=== PATIENT | female | born 1985 | race Caucasian/White ===

== ENCOUNTER → 2016-05-09 | Outpatient (CLI) | payer BC ==
--- NOTE | 2016-05-09 09:13 | US ---
EXAMINATION TYPE: US gallbladder DATE OF EXAM: 05/09/2016 9:04 AM COMPARISON: CT in PACS CLINICAL HISTORY: R10.0 ABD PAIN. Generalized ABD pain, pt states "stomach issues" EXAM MEASUREMENTS: Liver Length: 17.7 cm Gallbladder Wall: 0.2 cm CBD: 0.4 cm Right Kidney: 11.2 x 5.1 x 6.3 cm Findings: Pancreas: Obscured by bowel gas Liver: Upper limits of normal for size/ Difficult to penetrate Gallbladder: wnl Evidence for sonographic Fletcher's sign: No CBD: wnl Right Kidney: wnl IMPRESSION: 1. Fatty hepatic infiltration.
== END ==
LOC: RADUSWWP 08:51
PROVIDERS: ATTEND Family Medicine
DX: K76.0 Fatty (change of) liver, not elsewhere classified (principal)
CPT/HCPCS: 76705

== ENCOUNTER → 2016-05-22 | Outpatient (CLI) | payer BC ==
--- NOTE | 2016-05-23 08:14 | NM ---
EXAMINATION TYPE: NM hepatobiliary w EF DATE OF EXAM: 05/22/2016 4:46 PM COMPARISON: NONE HISTORY: Fatty liver TECHNIQUE: After the intravenous administration of 5.4 mCi Tc 99m Mebrofenin hepatobiliary scintigrap hy is performed. Immediate images post injection. FINDINGS: There is satisfactory initial accumulation of tracer by the liver. The gallbladder is visualized wit hin 6 minutes. The small bowel activity is noted within 28 minutes. At one hour 8 ounces of oral en sure plus is given to mimic CCK and gallbladder ejection fraction is calculated at 57 %, in the vicente l range. Therefore there is no scintigraphic evidence of cystic or common bile duct obstruction to s uggest acute cholecystitis or gallbladder dyskinesia. IMPRESSION: NORMAL NUCLEAR MEDICINE HEPATOBILIARY SCAN WITH EJECTION FRACTION CALCULATION.
== END | disposition home or self-care (01) ==
LOC: RADNMMAIN 14:37
PROVIDERS: ATTEND Family Medicine
DX: K76.0 Fatty (change of) liver, not elsewhere classified (principal)
CPT/HCPCS: 78226; A9537

== ENCOUNTER 2016-06-13 09:20 | Day surgery (SDC) | payer BC ==
[2016-06-10 15:37] VITALS: BMI 45.1
[~2016-06-13 09:20] MED LIST: LACTATED RINGERS 1,000 ML IV SCH; LIDOCAINE 1% 20 ML VIAL (10MG/ML) FOR IV START INTRADERMA PRN
[2016-06-13 09:41] VITALS: TEMP 97.8
[2016-06-13] MEDS ORDERED: KETAMINE 10 MG/ML 20 ML VIAL ONE (10:29)
[2016-06-13] MEDS ORDERED: PROPOFOL 10 MG/ML 20 ML VIAL IV ONE (10:29)
[2016-06-13] MEDS ORDERED: GLYCOPYRROLATE 0.2 MG/ML 2 ML VIAL ONE (10:29)
[2016-06-13 10:43] VITALS: RESP 18
--- NOTE | 2016-06-13 10:46 | P.OP ---
Date of Procedure: 06/13/16 Preoperative Diagnosis: GERD Postoperative Diagnosis: Antral gastritis Hiatal hernia Esophagitis Procedure(s) Performed: EGD Anesthesia: MAC Surgeon: Marquez Lord Pathology: other (Antrum, esophagus) Condition: stable Disposition: PACU Description of Procedure: The patient's placed on the endoscopy table lateral position. She received IV sedation. The gastroscope some placed oropharynx and passed in the esophagus and stomach. Scope was then placed through the pylorus. The first and second portion of the duodenum appeared normal. Scope was then brought back the antrum and this appeared mildly inflamed. A biopsies was performed. The scope was then retroflexed the meters stomach appeared normal. There was a hiatal hernia seen. The GE junction was at 40 cm. is. The distal esophagus appeared mildly inflamed. A biopsies performed. The scope was then brought back the proximal esophagus this appeared normal. Scope was withdrawn for patient.
[2016-06-13 11:07] VITALS: BP 95/55; PULSE 70
--- NOTE | 2016-08-22 13:03 | P.GSHP ---
History of Present Illness H&P Date: 06/13/16 Chief Complaint: Epigastric dull pain 22-year-old female who presents today for EGD. She's had complaints of some epigastric abdominal pain. Past Medical History Past Medical History: Asthma, GERD/Reflux Additional Past Medical History / Comment(s): MIGRAINES., RASH ON ARMS . History of Any Multi-Drug Resistant Organisms: None Reported Past Surgical History: No Surgical Hx Reported Additional Past Surgical History / Comment(s): TUBES IN EARS. Past Anesthesia/Blood Transfusion Reactions: No Reported Reaction, Motion Sickness Past Psychological History: Anxiety Smoking Status: Current every day smoker Past Alcohol Use History: Occasional Additional Past Alcohol Use History / Comment(s): SMOKES 1/2 PPD. STATES SMOKING APPROX 2 YEARS. Past Drug Use History: None Reported - Past Family History Mother Family Medical History: No Reported History Medications and Allergies Home Medications Medication Instructions Recorded Confirmed Type Acetaminophen Tab [Tylenol] 650 mg PO Q6H PRN 06/10/16 07/28/16 History Albuterol Nebulized [Ventolin 2.5 mg INHALATION RT-TID 07/23/16 07/28/16 History Nebulized] Allergies Allergy/AdvReac Type Severity Reaction Status Date / Time cephalexin monohydrate Allergy Swelling Verified 07/28/16 09:57 [From Keflex] sulfamethoxazole Allergy Rash/Hives Verified 07/28/16 09:57 [From Bactrim] trimethoprim [From Bactrim] Allergy Rash/Hives Verified 07/28/16 09:57 propoxyphene napsylate AdvReac Nausea & Verified 07/28/16 09:57 [From Darvocet-N 100] Vomiting Surgical - Exam Vital Signs Temp Pulse Resp BP Pulse Ox 97.8 F 84 16 118/69 95 06/13/16 09:38 06/13/16 09:38 06/13/16 09:38 06/13/16 09:38 06/13/16 09:38 - General well developed, no distress - Eyes PERRL - Neck no masses - Cardiovascular Rhythm: regular - Abdomen Abdomen: soft, non tender Assessment and Plan Plan: Abdominal pain. We'll perform EGD.
== END 2016-06-13 11:20 | disposition home or self-care (01) ==
LOC: ORWHC2ENDO 09:20
PROVIDERS: ATTEND Surgery
DX: K29.50 Unspecified chronic gastritis without bleeding (principal); K21.0 Gastro-esophageal reflux disease with esophagitis; K44.9 Diaphragmatic hernia without obstruction or gangrene; J45.909 Unspecified asthma, uncomplicated; F41.9 Anxiety disorder, unspecified; F17.200 Nicotine dependence, unspecified, uncomplicated; Z79.899 Other long term (current) drug therapy; Z88.1 Allergy status to other antibiotic agents; Z88.2 Allergy status to sulfonamides
CPT/HCPCS: 81025; 88305; 88342; 43239; J2704

== ENCOUNTER 2016-07-14 09:30 | Inpatient (IN) | payer BC ==
[2016-07-10 09:54] VITALS: BMI 45.4
[2016-07-28] MEDS ORDERED: HEPARIN SODIUM,PORCINE 5,000 UNIT/ML 1 ML VIAL SQ ONE (05:00)
[2016-07-28] MEDS ORDERED: CLINDAMYCIN 900 MG in DEXTROSE 5% IN WATER 50 ML IVPB ONE ×2 (05:00)
[2016-07-28] MEDS ORDERED: GENTAMICIN 320 MG in SODIUM CHLORIDE 0.9% 100 ML IVPB ONE (05:00)
[2016-07-28] MEDS ORDERED: ONDANSETRON 4 MG/2 ML VIAL IVP ONE (05:48)
[2016-07-28] MEDS ORDERED: LIDOCAINE 1% 20 ML VIAL (10MG/ML) FOR IV START INTRADERMA PRN ×2 (05:48)
[2016-07-28] MEDS ORDERED: LACTATED RINGERS 1,000 ML IV SCH (05:48)
[2016-07-28] MEDS ORDERED: DEXAMETHASONE SOD PHOSPHATE 10 MG/ML 1 ML VIAL IV ONE (05:48)
[2016-07-28] MEDS ORDERED: SCOPOLAMINE 1.5MG/72HR PATCH TRANSDERM ONE (05:48)
[2016-07-28] MEDS ORDERED: HYDROmorphone 1 MG/ML 1 ML SYRINGE IVP PRN (05:48)
[2016-07-28 09:56] LABS: Glucose,Whole Blood 95 mg/dL (75-99)
--- NOTE | 2016-07-28 10:34 | P.GSHP ---
History of Present Illness H&P Date: 07/28/16 Chief Complaint: GERD This is a 22-year-old female referred from Dr. Bakari Viera.The patient has had long-standing problems with reflux esophagitis. The patient underwent recent EGD is found have evidence of esophagitis. Patient has been well informed on the procedure of laparoscopic Krystin fundoplication. The patient is aware the risk of the conversion to the open procedure, risk of injury to the stomach, liver and spleen. The patient is also a risk of recurrent GERD and dysphagia symptoms. The patient understands there is a postoperative diet of full liquids for 2 weeks after surgery. - Constitutional Constitutional: Reports as per HPI Past Medical History Past Medical History: Asthma, GERD/Reflux, Skin Disorder Additional Past Medical History / Comment(s): MIGRAINES, varicose veins, bronchitis, hiatal hernia, gets rashes on legs and back-cause unknown, dx laryngitis by Dr Haq- finishing tx tomorrow- symptoms resolved History of Any Multi-Drug Resistant Organisms: None Reported Past Surgical History: Ear Surgery Additional Past Surgical History / Comment(s): TUBES IN EARS. Past Anesthesia/Blood Transfusion Reactions: Motion Sickness Past Psychological History: Anxiety Smoking Status: Current every day smoker Past Alcohol Use History: None Reported Additional Past Alcohol Use History / Comment(s): SMOKES 1/2 PPD. STATES SMOKING APPROX 2 YEARS. Past Drug Use History: None Reported - Past Family History Mother Family Medical History: No Reported History Medications and Allergies Home Medications Medication Instructions Recorded Confirmed Type Acetaminophen Tab [Tylenol Tab] 650 mg PO Q6H PRN 06/10/16 07/28/16 History Albuterol Nebulized [Ventolin 2.5 mg INHALATION TID 07/23/16 07/28/16 History Nebulized] Azithromycin [Zithromax Z-pack] 0 mg PO DIRECTED 07/23/16 07/23/16 History methylPREDNISolone [Medrol Dose 4 mg PO DIRECTED 07/23/16 07/28/16 History Pack] Allergies Allergy/AdvReac Type Severity Reaction Status Date / Time cephalexin monohydrate Allergy Swelling Verified 07/28/16 09:57 [From Keflex] sulfamethoxazole Allergy Rash/Hives Verified 07/28/16 09:57 [From Bactrim] trimethoprim [From Bactrim] Allergy Rash/Hives Verified 07/28/16 09:57 propoxyphene napsylate AdvReac Nausea & Verified 07/28/16 09:57 [From Darvocet-N 100] Vomiting Surgical - Exam Vital Signs Temp Pulse Resp BP Pulse Ox 98.3 F 83 16 137/78 98 07/28/16 09:49 07/28/16 09:49 07/28/16 09:49 07/28/16 09:49 07/28/16 09:49 - General well developed, no distress - Eyes PERRL - ENT normal pinna - Neck no masses - Respiratory normal expansion - Abdomen Abdomen: soft, non tender Assessment and Plan Plan: GERD. We'll perform laparoscopic Krystin fundoplication.
[2016-07-28] MEDS ORDERED: MIDAZOLAM 2 MG/2 ML VIAL IV ONE (10:48)
[2016-07-28] MEDS ORDERED: SUCCINYLCHOLINE CHLORIDE 100 MG/5 ML SYR IV ONE (11:03)
[2016-07-28] MEDS ORDERED: LIDOCAINE 1% INJ 10MG/ML (20 ML MDV) ONE (11:03)
[2016-07-28] MEDS ORDERED: ROCURONIUM BROMIDE 10 MG/ML 10 ML VIAL IV ONE (11:03)
[2016-07-28] MEDS ORDERED: NEOSTIGMINE 1 MG/ML 10 ML VIAL ONE (11:03)
[2016-07-28] MEDS ORDERED: GLYCOPYRROLATE 0.2 MG/ML 2 ML VIAL ONE (11:03)
[2016-07-28] MEDS ORDERED: fentaNYL (PF) 50 MCG/ML 2 ML AMP ONE (11:03)
[2016-07-28] MEDS ORDERED: MIDAZOLAM 2 MG/2 ML VIAL ONE (11:03)
[2016-07-28] MEDS ORDERED: PROPOFOL 10 MG/ML 20 ML VIAL IV ONE (11:03)
[2016-07-28] MEDS ORDERED: BUPIVACAIN-EPI 0.25%-1:200,000 30 ML VIAL SQ ONE (11:26)
--- NOTE | 2016-07-28 12:06 | P.OP ---
Date of Procedure: 07/28/16 Preoperative Diagnosis: GERD Postoperative Diagnosis: GERD Procedure(s) Performed: Laparoscopic Krystin fundoplication Implants: Anesthesia: SEEMA Surgeon: Marquez Lord Estimated Blood Loss (ml): 5 Pathology: none sent Condition: stable Disposition: PACU Indications for Procedure: Operative Findings: Description of Procedure: The patient was placed on the operating table in the supine position. The patient received general anesthesia. And was placed in dorsal lithotomy position. The patient was prepped and draped in the usual sterile fashion. The skin incision sites were anesthetized with 1% local Xylocaine. The skin was incised in the left periumbilical area and then using a blade less 5 mm trocar under direct visualization panel cavity was entered. After adequate insufflation the laparoscope was then placed into the peritoneal cavity. Next a 5 mm trochars placed in the right epigastric position. Another 5 millimeter trocar the right lateral position. Another 5 millimeter trocar in the left lateral position a 5 mm trocar is placed in the left epigastric position. And then the initial 5 mm trocar was exchanged for a 10 mm trocar. The left lateral lobe liver was retracted. The hernia was seen. The crural defect was then dissected using the Harmonic scissors device. A 360 crural dissection was performed the esophagus stomach was reduced back into the peritoneal Cavity. The crural defect was then closed using 2-0 Ethibond suture. Next the fundus of the stomach was mobilized using the [place] scissors device. and then a 58-[place] bougie dilator was placed oropharynx passed into the esophagus and stomach the fundal plication wrap was then performed by grasping the fundus posteriorly and bringing it around the esophagus and stomach fundoplication was then performed using 2-0 Ethibond suture. Care was taken that the fundal location rested over top of the intra-abdominal esophagus. There was no injury seen to the stomach or esophagus. The dilator was then withdrawn. The abdomen was irrigated there is no bleeding seen. The trochars were then withdrawn and then skin incision sites were closed using 3-0 Monocryl suture Steri-Strips are applied. Patient thought procedure well and sent to recovery room in stable condition.
[2016-07-28] MEDS ORDERED: ONDANSETRON 4 MG/2 ML VIAL IVP PRN (12:07)
[2016-07-28] MEDS ORDERED: KETOROLAC 30 MG/ML 1 ML VIAL IVP ONE (12:30)
[2016-07-28 12:32] VITALS: RESP 16
[2016-07-28] MEDS: HYDROmorphone 1 MG/ML 1 ML SYRINGE IVP PRN ×4 (12:39→21:36)
[2016-07-28] MEDS: LACTATED RINGERS 1,000 ML IV SCH ×2 (14:54→20:59)
[2016-07-28] MEDS: D5-0.45% NACL WITH KCL 20MEQ/L 1,000 ML IV SCH ×2 (14:56→20:59)
[2016-07-29 01:10] VITALS: TEMP 97.7
[2016-07-29] MEDS: D5-0.45% NACL WITH KCL 20MEQ/L 1,000 ML IV SCH (03:31)
[2016-07-29] MEDS: HYDROmorphone 1 MG/ML 1 ML SYRINGE IVP PRN ×2 (04:57→10:34)
[2016-07-29 07:07] VITALS: BP 122/63; PULSE 73
[2016-07-29] MEDS ORDERED: ENOXAPARIN 40 MG/0.4 ML SYRINGE SQ SCH (09:00)
--- NOTE | 2016-07-29 11:25 | P.DS ---
Providers Date of admission: 07/28/16 09:07 Expected date of discharge: 07/29/16 Attending physician: Marquez Lord Primary care physician: Bakari Haq [facility] Course: Patient is a 30-year-old female, patient of Dr. Bakari Haq in the outpatient setting, with medical history significant for reflux esophagitis not managed with conservative treatment. Patient presented to the hospital for elective laparoscopic Krystin fundoplication. Patient tolerated procedure well. Postoperative swallow study without evidence of leak or obstruction. Patient had no complaints of dysphagia. Patient had an uneventful postoperative recovery and was deemed stable for discharge to home with close follow-up in the outpatient setting. Discharge diagnoses: GERD status post laparoscopic Krystin fundoplication. The above impression and plan have been discussed and directed by Dr. Lord. Jes HUNTER acting as scribe for Dr. Lord. Pertinent Studies: Pharynx larynx with fluoroscopy Procedures: Laparoscopic Krystin fundoplication Patient Condition at Discharge: Good Plan - Discharge Summary New Discharge Prescriptions: Docusate [Colace] 100 mg PO BID #20 capsule HYDROcodone/APAP 7.5-325MG [[place] 7.5-325] 1 tab PO Q6HR PRN #28 tab PRN Reason: Pain Discharge Medication List Acetaminophen Tab [Tylenol] 650 mg PO Q6H PRN 06/10/16 [History] Albuterol Nebulized [Ventolin Nebulized] 2.5 mg INHALATION RT-TID 07/23/16 [ History] Docusate [Colace] 100 mg PO BID #20 capsule 07/29/16 [Rx] HYDROcodone/APAP 7.5-325MG [[place] 7.5-325] 1 tab PO Q6HR PRN #28 tab 07/29/16 [ Rx] Follow up Appointment(s)/Referral(s): Bakari Haq DO [Primary Care Provider] - 1 Week Marquez Lord MD [STAFF PHYSICIAN] - 2 Weeks Patient Instructions/Handouts: *Surgery [facility] - ([facility]) Lap Krystin Fundiplication Post-Op Instructions Activity/Diet/Wound Care/Special Instructions: No heavy lifting, pushing, or pulling items greater than 10 pounds. Full liquid diet for 2 weeks. No caffeinated beverages or straws. Shower daily, no soaking in bath tubs, pools, or hot tubs. No driving while taking pain medication. Notify surgeon with any signs or symptoms of infection, increased pain, or not tolerating diet. Discharge Disposition: HOME SELF-CARE
--- NOTE | 2016-07-29 12:10 | FL ---
EXAMINATION TYPE: FL esophagus cervic/pharynx DATE OF EXAM: 07/28/2016 4:59 PM HISTORY: Post Luis COMPARISON: NONE TECHNIQUE: Single contrast technique utilized to evaluate distal esophagus. FINDINGS: Distal esophagus opens to normal caliber. There is flow contrast through the postsurgical site with m ild hesitancy. No extravasation of contrast 7. No free air is evident. IMPRESSION: 1. No extravasation of contrast. 2. No significant obstruction post surgery
== END 2016-07-29 12:01 | disposition home or self-care (01) | DRG 328 ==
LOC: 2ORWHC 07-28 09:07 → 3SUR 07-28 12:10
PROVIDERS: ADMIT Surgery; ATTEND Surgery
PROC: 0DV44ZZ Restriction of Esophagogastric Junction, Percutaneous Endoscopic Approach (ICD-10-PCS; principal; 2016-07-28 11:25)
PROC: 0BQS4ZZ (ICD-10-PCS; principal; 2016-07-28 11:25)
PROC: 0BQR4ZZ (ICD-10-PCS; principal; 2016-07-28 11:25)
DX: K21.9 Gastro-esophageal reflux disease without esophagitis (principal); F17.200 Nicotine dependence, unspecified, uncomplicated; J45.909 Unspecified asthma, uncomplicated; Z79.899 Other long term (current) drug therapy; Z88.1 Allergy status to other antibiotic agents; Z88.2 Allergy status to sulfonamides; K44.9 Diaphragmatic hernia without obstruction or gangrene
CPT/HCPCS: 36415; 74210; 81025; 85025

== ENCOUNTER → 2016-07-23 | Outpatient (CLI) | payer BC ==
[2016-07-23 13:59] LABS: Basophils # (A) 0.1 k/uL (0-0.2); Basophils % (A) 0 %; CH 29.3; CHCM 33.2; Eosinophils # (A) 0.1 k/uL (0-0.7); Eosinophils % (A) 1 %; HCT 43.1 % (34.0-46.0); HDW 2.15; HGB 14.3 gm/dL (11.4-16.0); Luc # (Auto) 0.19; Luc % (Auto) 2; Lymphocytes # (A) 3.2 k/uL (1.0-4.8); Lymphocytes % (A) 26 %; MCH 29.5 pg (25.0-35.0); MCHC 33.3 g/dL (31.0-37.0); MCV 88.7 fL (80.0-100.0); Monocytes # (A) 0.4 k/uL (0-1.0); Monocytes % (A) 4 %; Neutrophils # (A) 8.1 k/uL (1.3-7.7); Neutrophils % (A) 67 %; RBC 4.86 m/uL (3.80-5.40); WBC 12.1 k/uL (3.8-10.6); WBC (Perox) 11.65
== END | disposition home or self-care (01) ==
LOC: LABPAT 13:37
PROVIDERS: ATTEND Surgery
DX: Z01.812 Encounter for preprocedural laboratory examination (principal)
CPT/HCPCS: 36415; 85025

== ENCOUNTER 2016-11-16 23:24 | Emergency (ER) | payer BC, OTHER ==
[2016-11-16 23:31] VITALS: RESP 18
--- NOTE | 2016-11-16 23:41 | ED ---
General Adult HPI - General Chief complaint: Neck Pain/Injury Stated complaint: Swollen Neck Time Seen by Provider: 11/16/16 23:32 Source: patient, RN notes reviewed Mode of arrival: ambulatory Limitations: no limitations - History of Present Illness Initial comments: This a 30-year-old female presents emergency Department chief complaint of swelling along the right side of her mandible. Patient states this started 2 days ago. He states it is. Painful and swollen. She states never had any like this in the past. She states that she's had multiple dental infections including strep states that she has no pain directly throat at this time. Patient denies fever, chills. She does admit to some fatigue, and run down. She denies any sick contacts chest pain, shortness breath, nausea, vomiting diarrhea constipation. Patient states she has not taken Tylenol Motrin for symptoms at this time. Denies any dental pain - Related Data Previous Rx's Medication Instructions Recorded Amoxicillin/Potassium Clav 1 tab PO Q12HR #20 tab 11/17/16 [Augmentin 875-125 Tablet] Ibuprofen [Motrin] 600 mg PO Q8HR PRN #30 tab 11/17/16 Allergies Allergy/AdvReac Type Severity Reaction Status Date / Time bee venom protein (honey bee) Allergy Unknown Verified 11/16/16 23:44 cephalexin monohydrate Allergy Swelling Verified 11/16/16 23:44 [From Keflex] sulfamethoxazole Allergy Rash/Hives Verified 11/16/16 23:44 [From Bactrim] trimethoprim [From Bactrim] Allergy Rash/Hives Verified 11/16/16 23:44 propoxyphene napsylate AdvReac Nausea & Verified 11/16/16 23:44 [From Darvocet-N 100] Vomiting Review of Systems ROS Statement: Those systems with pertinent positive or pertinent negative responses have been documented in the HPI. ROS Other: All systems not noted in ROS Statement are negative. Past Medical History Past Medical History: Asthma, GERD/Reflux, Skin Disorder Additional Past Medical History / Comment(s): MIGRAINES, varicose veins, bronchitis, hiatal hernia, gets rashes on legs and back-cause unknown, dx laryngitis by Dr Haq- finishing tx tomorrow- symptoms resolved History of Any Multi-Drug Resistant Organisms: None Reported Past Surgical History: Ear Surgery Additional Past Surgical History / Comment(s): TUBES IN EARS. Past Anesthesia/Blood Transfusion Reactions: Motion Sickness Past Psychological History: Anxiety Smoking Status: Current every day smoker Past Alcohol Use History: None Reported Past Drug Use History: None Reported - Past Family History Mother Family Medical History: No Reported History General Exam Limitations: no limitations General appearance: alert, in no apparent distress Head exam: Present: atraumatic, normocephalic, normal inspection Eye exam: Present: normal appearance, PERRL, EOMI. Absent: scleral icterus, conjunctival injection, periorbital swelling ENT exam: Present: mucous membranes moist, TM's normal bilaterally, normal external ear exam, other (There is tenderness along the right submandibular region). Absent: normal oropharynx (Left tonsils noted with no exudates or erythema) Neck exam: Present: normal inspection, full ROM, lymphadenopathy (Right submandibular region with mild tenderness). Absent: tenderness, meningismus, thyromegaly Respiratory exam: Present: normal lung sounds bilaterally. Absent: respiratory distress, wheezes, rales, rhonchi, stridor Cardiovascular Exam: Present: regular rate, normal rhythm, normal heart sounds. Absent: systolic murmur, diastolic murmur, rubs, gallop, clicks Neurological exam: Present: alert, oriented X3, CN II-XII intact, reflexes normal. Absent: motor sensory deficit Skin exam: Present: warm, dry, intact, normal color. Absent: rash Course Vital Signs 11/16/16 23:28 Temperature 98.2 F Pulse Rate 84 Respiratory 18 Rate Blood Pressure 129/88 O2 Sat by Pulse 97 Oximetry Medical Decision Making - Medical Decision Making 31-year-old female presents emergency department for swelling in the right submandibular region. Patient's labwork is unremarkable negative strep and negative heterophile. This may be a large lymph node versus salinitis. Patient will be started on Augmentin and follow primary care physician. Return parameters were discussed. - Lab Data Result diagrams: 11/16/16 23:53 11/16/16 23:53 Lab Results 11/16/16 11/16/16 11/16/16 Range/Units 23:53 23:53 23:53 WBC 10.2 (3.8-10.6) k/uL RBC 4.76 (3.80-5.40) m/uL Hgb 14.5 (11.4-16.0) gm/dL Hct 43.1 (34.0-46.0) % MCV 90.7 (80.0-100.0) fL MCH 30.4 (25.0-35.0) pg MCHC 33.6 (31.0-37.0) g/dL RDW 13.6 (11.5-15.5) % Plt Count 270 (150-450) k/uL Neutrophils % 50 % Lymphocytes % 41 % Monocytes % 5 % Eosinophils % 3 % Basophils % 1 % Neutrophils # 5.1 (1.3-7.7) k/uL Lymphocytes # 4.2 (1.0-4.8) k/uL Monocytes # 0.5 (0-1.0) k/uL Eosinophils # 0.3 (0-0.7) k/uL Basophils # 0.1 (0-0.2) k/uL Sodium 139 (137-145) mmol/L Potassium 4.4 (3.5-5.1) mmol/L Chloride 106 (98-107) mmol/L Carbon Dioxide 25 (22-30) mmol/L Anion Gap 8 mmol/L BUN 12 (7-17) mg/dL Creatinine 0.80 (0.52-1.04) mg/dL Est GFR (MDRD) Af Amer >60 (>60 ml/min/1.73 sqM) Est GFR (MDRD) Non-Af >60 (>60 ml/min/1.73 sqM) Glucose 85 (74-99) mg/dL Calcium 8.8 (8.4-10.2) mg/dL Amylase 35 (30-110) U/L Heterophile Antibody Negative (Negative) Group A Strep Rapid (Negative) 11/16/16 Range/Units 23:54 WBC (3.8-10.6) k/uL RBC (3.80-5.40) m/uL Hgb (11.4-16.0) gm/dL Hct (34.0-46.0) % MCV (80.0-100.0) fL MCH (25.0-35.0) pg MCHC (31.0-37.0) g/dL RDW (11.5-15.5) % Plt Count (150-450) k/uL Neutrophils % % Lymphocytes % % Monocytes % % Eosinophils % % Basophils % % Neutrophils # (1.3-7.7) k/uL Lymphocytes # (1.0-4.8) k/uL Monocytes # (0-1.0) k/uL Eosinophils # (0-0.7) k/uL Basophils # (0-0.2) k/uL Sodium (137-145) mmol/L Potassium (3.5-5.1) mmol/L Chloride (98-107) mmol/L Carbon Dioxide (22-30) mmol/L Anion Gap mmol/L BUN (7-17) mg/dL Creatinine (0.52-1.04) mg/dL Est GFR (MDRD) Af Amer (>60 ml/min/1.73 sqM) Est GFR (MDRD) Non-Af (>60 ml/min/1.73 sqM) Glucose (74-99) mg/dL Calcium (8.4-10.2) mg/dL Amylase (30-110) U/L Heterophile Antibody (Negative) Group A Strep Rapid Negative (Negative) Disposition Clinical Impression: Sialadenitis, Lymphadenopathy Disposition: HOME SELF-CARE Condition: Stable Instructions: Lymphadenopathy (ED) Additional Instructions: Please return to the Emergency Department if symptoms worsen or any other concerns. Prescriptions: Amoxicillin/Potassium Clav [Augmentin 875-125 Tablet] 1 tab PO Q12HR #20 tab Ibuprofen [Motrin] 600 mg PO Q8HR PRN #30 tab PRN Reason: Pain Referrals: Bakari Haq DO [Primary Care Provider] - 1-2 days Time of Disposition: 00:40
[2016-11-17 00:15] LABS: Basophils # (A) 0.1 k/uL (0-0.2); Basophils % (A) 1 %; CH 30.7; Eosinophils # (A) 0.3 k/uL (0-0.7); Eosinophils % (A) 3 %; HCT 43.1 % (34.0-46.0); HDW 2.12; HGB 14.5 gm/dL (11.4-16.0); Luc # (Auto) 0.14; Luc % (Auto) 1; Lymphocytes # (A) 4.2 k/uL (1.0-4.8); Lymphocytes % (A) 41 %; MCH 30.4 pg (25.0-35.0); MCHC 33.6 g/dL (31.0-37.0); MCV 90.7 fL (80.0-100.0); Mean Platelet Volume 9.5; Monocytes # (A) 0.5 k/uL (0-1.0); Monocytes % (A) 5 %; Neutrophils # (A) 5.1 k/uL (1.3-7.7); Neutrophils % (A) 50 %; RBC 4.76 m/uL (3.80-5.40); RDW 13.6 % (11.5-15.5); WBC 10.2 k/uL (3.8-10.6); WBC (Perox) 9.75
[2016-11-17 00:26] LABS: Amylase 35 U/L (30-110); Anion Gap 8 mmol/L; Blood Urea Nitrogen 12 mg/dL (7-17); Calcium 8.8 mg/dL (8.4-10.2); Carbon Dioxide 25 mmol/L (22-30); Chloride 106 mmol/L (98-107); Glucose 85 mg/dL (74-99); Non-African American GFR(MDRD) >60 (>60 ml/min/1.73 sqM); Potassium 4.4 mmol/L (3.5-5.1); Sodium 139 mmol/L (137-145)
[2016-11-17] MEDS ORDERED: AMOXIC-POT CLAV 875-125MG 1 EACH TAB PO STA (00:40)
[2016-11-17 01:06] VITALS: BP 137/63; PULSE 71; TEMP 97.6
== END 2016-11-17 01:07 | disposition home or self-care (01) ==
LOC: EC 23:24
DX: K11.20 Sialoadenitis, unspecified (principal); R59.0 Localized enlarged lymph nodes; R53.83 Other fatigue; F17.200 Nicotine dependence, unspecified, uncomplicated; Z88.1 Allergy status to other antibiotic agents; Z88.5 Allergy status to narcotic agent; Z91.030 Bee allergy status
CPT/HCPCS: 36415; 80048; 82150; 85025; 86308; 87081; 87430; 99283

== ENCOUNTER 2018-03-10 06:01 | Emergency (ER) | payer OTHER ==
[2018-03-10 06:07] VITALS: PULSE 99
--- NOTE | 2018-03-10 07:58 | ED ---
General Adult HPI - General Chief complaint: Abdominal Pain Stated complaint: abd pain Source: patient Mode of arrival: ambulatory Limitations: no limitations - Related Data Home Medications Medication Instructions Recorded Confirmed Ibuprofen [Motrin Ib] 800 mg PO Q6H PRN 03/10/18 03/10/18 Allergies Allergy/AdvReac Type Severity Reaction Status Date / Time bee venom protein (honey bee) Allergy Unknown Verified 03/10/18 07:13 cephalexin monohydrate Allergy Swelling Verified 03/10/18 07:13 [From Keflex] sulfamethoxazole Allergy Rash/Hives Verified 03/10/18 07:13 [From Bactrim] trimethoprim [From Bactrim] Allergy Rash/Hives Verified 03/10/18 07:13 propoxyphene napsylate AdvReac Nausea & Verified 03/10/18 07:13 [From Darvocet-N 100] Vomiting Review of Systems ROS Statement: Those systems with pertinent positive or pertinent negative responses have been documented in the HPI. ROS Other: All systems not noted in ROS Statement are negative. Past Medical History Past Medical History: Asthma, GERD/Reflux, Skin Disorder Additional Past Medical History / Comment(s): MIGRAINES, varicose veins, bronchitis, gets rashes on legs and back-cause unknown, dx laryngitis by Dr Haq- finishing tx tomorrow- symptoms resolved History of Any Multi-Drug Resistant Organisms: None Reported Past Surgical History: Ear Surgery, Hernia Repair Additional Past Surgical History / Comment(s): TUBES IN EARS. Past Anesthesia/Blood Transfusion Reactions: Motion Sickness Past Psychological History: Anxiety Smoking Status: Current every day smoker Past Alcohol Use History: None Reported Past Drug Use History: None Reported - Past Family History Mother Family Medical History: No Reported History General Exam Limitations: no limitations Course Vital Signs 03/10/18 06:01 Temperature 97.7 F Pulse Rate 99 Respiratory 18 Rate Blood Pressure 126/85 O2 Sat by Pulse 99 Oximetry Medical Decision Making - Medical Decision Making Dictation was produced using [employer] dictation software. please excuse any grammatical, word or spelling errors. Chief Complaint: 32-year-old female presents with chief complaint of right lower quadrant abdominal pain. History of Present Illness: Patient is a 32-year-old female past medical history of bypass surgery presents with right lower quadrant abdominal pain. Patient states that the pain is a lot worse today than usual. Patient has approximately one half years of the symptoms. Patient denies the possibility of being . Denies any constitutional symptoms. Patient does report still having her appendix. She has history of bypass surgery by Dr. Lord several months ago. No diarrhea. Patient is nauseous however no vomiting. The ROS documented in this emergency department record has been reviewed and confirmed by me. Those systems with pertinent positive or negative responses have been documented in the HPI. All other systems are other negative and/or noncontributory. PHYSICAL EXAM: General Impression: Alert and oriented x3, not in acute distress HEENT: Normocephalic atraumatic, extra-ocular movements intact, pupils equal and reactive to light bilaterally, mucous membranes moist. Cardiovascular: Heart regular rate and rhythm, S1&S2 audible, no murmurs, rubs or gallops Chest: Lungs clear to auscultation bilaterally, no rhonchi, no wheeze, no rales Abdomen: Tenderness to palpation of the right lower quadrant, referred tenderness to the right with palpation to the left Musculoskeletal: Pulses present and equal in all extremities, no peripheral edema Motor: Power 5/5 bilaterally, no focal deficits noted Neurological: CN II-XII grossly intact, no focal motor or sensory deficits noted Skin: Intact with no visualized rashes Psych: Normal affect and mood ED course: 32 yo Female presents with chief complaint of right lower quadrant abdominal pain. Clinical presentation suspicious for appendicitis. Signs upon arrival are within acceptable limits.Laboratory evaluation obtained. CBC, metabolic panel, urinalysis is unremarkable. Computed tomography scan of the abdomen and pelvis shows no acute processes. There is however mild amount of physiologic fluid likely secondary from a recently ruptured cyst. Patient be discharged. No clinical suspicion of surgical abdomen. Told to follow-up care physician upon discharge. Instructed to return if there is any worsening symptoms. - Lab Data Result diagrams: 03/10/18 06:59 03/10/18 06:59 Lab Results 03/10/18 03/10/18 03/10/18 Range/Units 06:59 06:59 08:36 WBC 8.4 (3.8-10.6) k/uL RBC 4.68 (3.80-5.40) m/uL Hgb 13.6 (11.4-16.0) gm/dL Hct 42.5 (34.0-46.0) % MCV 90.8 (80.0-100.0) fL MCH 29.1 (25.0-35.0) pg MCHC 32.0 (31.0-37.0) g/dL RDW 12.3 (11.5-15.5) % Plt Count 271 (150-450) k/uL Neutrophils % 52 % Lymphocytes % 40 % Monocytes % 5 % Eosinophils % 2 % Basophils % 1 % Neutrophils # 4.3 (1.3-7.7) k/uL Lymphocytes # 3.3 (1.0-4.8) k/uL Monocytes # 0.4 (0-1.0) k/uL Eosinophils # 0.2 (0-0.7) k/uL Basophils # 0.1 (0-0.2) k/uL Sodium 141 (137-145) mmol/L Potassium 4.4 (3.5-5.1) mmol/L Chloride 107 (98-107) mmol/L Carbon Dioxide 28 (22-30) mmol/L Anion Gap 6 mmol/L BUN 12 (7-17) mg/dL Creatinine 0.85 (0.52-1.04) mg/dL Est GFR (CKD-EPI)AfAm >90 (>60 ml/min/1.73 sqM) Est GFR (CKD-EPI)NonAf >90 (>60 ml/min/1.73 sqM) Glucose 86 (74-99) mg/dL Calcium 8.9 (8.4-10.2) mg/dL Urine Color Yellow Urine Appearance Cloudy H (Clear) Urine pH 6.0 (5.0-8.0) Ur Specific [place] >1.050 H (1.001-1.035) Urine Protein Trace H (Negative) Urine Glucose (UA) Negative (Negative) Urine Ketones Negative (Negative) Urine Blood Trace H (Negative) Urine Nitrite Negative (Negative) Urine Bilirubin Negative (Negative) Urine Urobilinogen <2.0 (<2.0) mg/dL Ur Leukocyte Esterase Small H (Negative) Urine RBC 6 H (0-5) /hpf Urine WBC 6 H (0-5) /hpf Ur Squamous Epith Cells 13 H (0-4) /hpf Urine Bacteria Occasional H (None) /hpf Urine Mucus Moderate H (None) /hpf Urine HCG, Qual (Not Detectd) 03/10/18 Range/Units 08:36 WBC (3.8-10.6) k/uL RBC (3.80-5.40) m/uL Hgb (11.4-16.0) gm/dL Hct (34.0-46.0) % MCV (80.0-100.0) fL MCH (25.0-35.0) pg MCHC (31.0-37.0) g/dL RDW (11.5-15.5) % Plt Count (150-450) k/uL Neutrophils % % Lymphocytes % % Monocytes % % Eosinophils % % Basophils % % Neutrophils # (1.3-7.7) k/uL Lymphocytes # (1.0-4.8) k/uL Monocytes # (0-1.0) k/uL Eosinophils # (0-0.7) k/uL Basophils # (0-0.2) k/uL Sodium (137-145) mmol/L Potassium (3.5-5.1) mmol/L Chloride (98-107) mmol/L Carbon Dioxide (22-30) mmol/L Anion Gap mmol/L BUN (7-17) mg/dL Creatinine (0.52-1.04) mg/dL Est GFR (CKD-EPI)AfAm (>60 ml/min/1.73 sqM) Est GFR (CKD-EPI)NonAf (>60 ml/min/1.73 sqM) Glucose (74-99) mg/dL Calcium (8.4-10.2) mg/dL Urine Color Urine Appearance (Clear) Urine pH (5.0-8.0) Ur Specific [place] (1.001-1.035) Urine Protein (Negative) Urine Glucose (UA) (Negative) Urine Ketones (Negative) Urine Blood (Negative) Urine Nitrite (Negative) Urine Bilirubin (Negative) Urine Urobilinogen (<2.0) mg/dL Ur Leukocyte Esterase (Negative) Urine RBC (0-5) /hpf Urine WBC (0-5) /hpf Ur Squamous Epith Cells (0-4) /hpf Urine Bacteria (None) /hpf Urine Mucus (None) /hpf Urine HCG, Qual Not Detected (Not Detectd) Disposition Clinical Impression: Abdominal pain Disposition: HOME SELF-CARE Condition: Good Instructions: Ruptured Ovarian Cyst (ED) Is patient prescribed a controlled substance at d/c from ED?: No Referrals: Bakari Haq DO [Primary Care Provider] - 1-2 days Time of Disposition: 09:34
[2018-03-10 08:31] LABS: Basophils # (A) 0.1 k/uL (0-0.2); Basophils % (A) 1 %; Eosinophils # (A) 0.2 k/uL (0-0.7); Eosinophils % (A) 2 %; HCT 42.5 % (34.0-46.0); HGB 13.6 gm/dL (11.4-16.0); Lymphocytes # (A) 3.3 k/uL (1.0-4.8); Lymphocytes % (A) 40 %; MCH 29.1 pg (25.0-35.0); MCV 90.8 fL (80.0-100.0); Mean Platelet Volume 8.2; Monocytes # (A) 0.4 k/uL (0-1.0); Monocytes % (A) 5 %; Neutrophils # (A) 4.3 k/uL (1.3-7.7); Neutrophils % (A) 52 %; Platelet Count 271 k/uL (150-450); RBC 4.68 m/uL (3.80-5.40); RDW 12.3 % (11.5-15.5); WBC 8.4 k/uL (3.8-10.6)
[2018-03-10 08:36] LABS: Anion Gap 6 mmol/L; Blood Urea Nitrogen 12 mg/dL (7-17); Calcium 8.9 mg/dL (8.4-10.2); Carbon Dioxide 28 mmol/L (22-30); Chloride 107 mmol/L (98-107); Glucose 86 mg/dL (74-99); Potassium 4.4 mmol/L (3.5-5.1); Sodium 141 mmol/L (137-145)
[2018-03-10 08:53] LABS: Appearance,Urine Cloudy (Clear); Bacteria,Urine Occasional /hpf; Bilirubin,Urine Negative (Negative); Blood,Urine Trace (Negative); Color,Urine Yellow; Glucose,Urine (UA) Negative (Negative); Ketones,Urine Negative (Negative); Leukocyte Esterase,Urine Small (Negative); Mucus,Urine Moderate /hpf; Nitrite,Urine Negative (Negative); Protein,Urine Trace (Negative); RBC,Urine 6 /hpf (0-5); Squamous Epithelial Cell,Urine 13 /hpf (0-4); Urobilinogen,Urine <2.0 mg/dL (<2.0); WBC,Urine 6 /hpf (0-5)
[2018-03-10 08:56] LABS: Specific Gravity,Urine >1.050 (1.001-1.035)
--- NOTE | 2018-03-10 09:12 | CT ---
EXAMINATION TYPE: CT abdomen pelvis w con DATE OF EXAM: 03/10/2018 HISTORY: Mid abdominal, umbilical, and right lower quadrant pain. CT DLP: 1786.8mGycm Automated Exposure Control for Dose Reduction was Utilized. CONTRAST: CT scan of the abdomen and pelvis is performed with IV Contrast, patient injected with 100 mL of Isov ue 300. COMPARISON: 08/14/2013 FINDINGS: LUNG BASES: There is bibasilar subsegmental dependent atelectasis. LIVER/GB: Hepatic parenchyma is diffusely hypoattenuated in comparison to that of the spleen, most co mmonly seen in hepatic steatosis. This finding limits evaluation for hepatic masses. No gross evidenc e of hepatic mass is seen. No intrahepatic biliary ductal dilatation. No cholelithiasis PANCREAS: No significant abnormality is seen. SPLEEN: No significant abnormality is seen. ADRENALS: No significant abnormality is seen. KIDNEYS: No significant abnormality is seen. No hydronephrosis of either kidney. Urinary bladder is n ondistended and incompletely evaluated. BOWEL: Postsurgical changes are seen of the gastroesophageal junction from prior Krystin fundoplicatio n. Appendix is air-filled and within normal limits of size. No right lower quadrant focal fat strandi ng changes are seen. No dilated large or small bowel is noted. There is a moderate amount retained ri ght hemicolonic stool. UTERUS/ADNEXA: There is a small amount of free fluid within the pelvis. Follicular changes are seen o f the bilateral ovaries. Low-attenuation of the endometrium likely relates to effacement disease. Aga in there is a right-sided Bartholin's gland cyst measuring approximately 3 cm as noted on the prior e xam. LYMPH NODES: No greater than 1cm abdominal or pelvic lymph nodes are appreciated. OSSEOUS STRUCTURES: Minimal degenerative changes of the thoracal lumbar spine are noted. IMPRESSION: 1. No CT evidence of acute appendicitis. Moderate right hemicolonic stool burden. 2. Hepatic steatosis. 3. Follicular changes of the ovaries and small amount of free fluid within the pelvis that may be phy siologic or related to recently ruptured cyst.
[2018-03-10] MEDS ORDERED: KETOROLAC 30 MG/ML 1 ML VIAL IVP STA (09:21)
[2018-03-10 10:09] VITALS: BP 101/53; RESP 16; TEMP 98.4
== END 2018-03-10 10:28 | disposition home or self-care (01) ==
LOC: EC 06:01
DX: R10.31 Right lower quadrant pain (principal); R11.0 Nausea; F17.200 Nicotine dependence, unspecified, uncomplicated; Z88.1 Allergy status to other antibiotic agents; Z88.2 Allergy status to sulfonamides; Z88.5 Allergy status to narcotic agent; Z91.018 Allergy to other foods
CPT/HCPCS: 36415; 80048; 85025; 81001; 81025; 74177; 99284; 96374; J1885; Q9967

== ENCOUNTER 2018-05-22 09:25 | Emergency (ER) | payer OTHER ==
[2018-05-22 09:37] VITALS: BP 119/66; RESP 18; TEMP 98
[2018-05-22] MEDS ORDERED: IPRATROPIUM-ALBUTEROL 3 ML NEB INHALATION STA (09:57)
[2018-05-22] MEDS ORDERED: guaiFENesin-DM 100-10MG/5ML 10 ML CUP PO STA (09:57)
--- NOTE | 2018-05-22 10:00 | ED ---
URI HPI - General Chief Complaint: Upper Respiratory Infection Stated Complaint: Fever, cough Time Seen by Provider: 05/22/18 09:49 Source: patient, RN notes reviewed Mode of arrival: ambulatory Limitations: no limitations - History of Present Illness Initial Comments: 32-year-old female presented emergency Department chief complaint of persistent cough congestion. Patient states she's been sick for last 4 days. Patient was initially seen at [facility] and states that he twisted his negative for influenza but states that she's had persistent fever and chills. Patient states she aches all over. Patient denies any ear pain. Patient states she's had sore throat, mild nausea and vomiting. Denies abdominal pain. Denies chance . Patient states she is just tired, tired from working. Patient denies any relief with [id number] medications though she states she was given guaifenesin [facility] which helped. Patient denies any other complaints. - Related Data Home Medications Medication Instructions Recorded Confirmed Albuterol Inhaler [Ventolin Hfa 1 - 2 puff INHALATION RT-Q6H PRN 05/22/18 05/22/18 Inhaler] Albuterol Nebulized [Ventolin 2.5 mg INHALATION RT-Q4H PRN 05/22/18 05/22/18 Nebulized] Guaifen/Dextromethorphan/PE 30 ml PO Q12H PRN 05/22/18 05/22/18 [Mucinex Fast-Max Congest-Cough] Ibuprofen [Motrin] 800 mg PO Q6HR PRN 05/22/18 05/22/18 Previous Rx's Medication Instructions Recorded guaiFENesin-DM 100-10MG/5ML 10 ml PO Q6HR #120 ml 05/22/18 [Robitussin DM] Allergies Allergy/AdvReac Type Severity Reaction Status Date / Time bee venom protein (honey bee) Allergy Unknown Verified 05/22/18 09:54 cephalexin monohydrate Allergy Swelling Verified 05/22/18 09:54 [From Keflex] sulfamethoxazole Allergy Rash/Hives Verified 05/22/18 09:54 [From Bactrim] trimethoprim [From Bactrim] Allergy Rash/Hives Verified 05/22/18 09:54 propoxyphene napsylate AdvReac Nausea & Verified 05/22/18 09:54 [From Darvocet-N 100] Vomiting Review of Systems ROS Statement: Those systems with pertinent positive or pertinent negative responses have been documented in the HPI. ROS Other: All systems not noted in ROS Statement are negative. Past Medical History Past Medical History: Asthma, GERD/Reflux, Skin Disorder Additional Past Medical History / Comment(s): MIGRAINES, varicose veins, bronchitis, gets rashes on legs and back-cause unknown, dx laryngitis by Dr Haq- finishing tx tomorrow- symptoms resolved History of Any Multi-Drug Resistant Organisms: None Reported Past Surgical History: Ear Surgery, Hernia Repair Additional Past Surgical History / Comment(s): TUBES IN EARS. Past Anesthesia/Blood Transfusion Reactions: Motion Sickness Past Psychological History: Anxiety Smoking Status: Current every day smoker Past Alcohol Use History: None Reported Past Drug Use History: None Reported - Past Family History Mother Family Medical History: No Reported History General Exam Limitations: no limitations General appearance: alert, in no apparent distress Head exam: Present: atraumatic, normocephalic, normal inspection Eye exam: Present: normal appearance, PERRL, EOMI. Absent: scleral icterus, conjunctival injection, periorbital swelling ENT exam: Present: normal exam, normal oropharynx, mucous membranes moist Neck exam: Present: normal inspection, full ROM. Absent: tenderness, meningismus, lymphadenopathy Respiratory exam: Present: normal lung sounds bilaterally. Absent: respiratory distress, wheezes, rales, rhonchi, stridor Cardiovascular Exam: Present: regular rate, normal rhythm, normal heart sounds. Absent: systolic murmur, diastolic murmur, rubs, gallop, clicks Course Vital Signs 05/22/18 05/22/18 09:33 10:31 Temperature 98 F Pulse Rate 81 76 Respiratory 18 Rate Blood Pressure 119/66 O2 Sat by Pulse 97 Oximetry Medical Decision Making - Medical Decision Making 32-year-old female presents emergency Department chief complaint fever cough congestion. Patient's influenza A positive. Chest x-ray unremarkable. Patient we discharged with cough suppressant. Return parameters were discussed.. - Lab Data Lab Results 05/22/18 Range/Units 10:00 Influenza Type A RNA Detected H (Not Detectd) Influenza Type B (PCR) Not Detected (Not Detectd) Disposition Clinical Impression: Influenza Disposition: HOME SELF-CARE Condition: Stable Instructions (If sedation given, give patient instructions): Influenza (ED) Additional Instructions: Please return to the Emergency Department if symptoms worsen or any other concerns. Prescriptions: guaiFENesin-DM 100-10MG/5ML [Robitussin DM] 10 ml PO Q6HR #120 ml Is patient prescribed a controlled substance at d/c from ED?: No Referrals: Bakari Haq DO [Primary Care Provider] - 1-2 days Time of Disposition: 10:44
--- NOTE | 2018-05-22 10:12 | XR ---
EXAMINATION TYPE: XR chest 2V DATE OF EXAM: 05/22/2018 HISTORY: Cough/fever. REFERENCE: Previous study dated 03/04/2016. FINDINGS: The lungs remain clear. Pleural spaces are clear. Heart size is within normal limits. IMPRESSION: NORMAL CHEST.
[2018-05-22 10:32] VITALS: PULSE 76
== END 2018-05-22 12:53 | disposition home or self-care (01) ==
LOC: EC 09:25
DX: J10.1 Influenza due to other identified influenza virus with other respiratory manifestations (principal); J45.909 Unspecified asthma, uncomplicated; F17.200 Nicotine dependence, unspecified, uncomplicated; Z88.2 Allergy status to sulfonamides; Z88.1 Allergy status to other antibiotic agents; Z91.030 Bee allergy status; Z88.5 Allergy status to narcotic agent
CPT/HCPCS: 71046; 87502; 94640; 99283

== ENCOUNTER 2018-09-04 08:08 | Emergency (ER) | payer OTHER ==
[2018-09-04 08:13] VITALS: BP 129/88; PULSE 89; RESP 18; TEMP 97.7
--- NOTE | 2018-09-04 08:37 | XR ---
EXAMINATION TYPE: XR ankle complete RT, XR foot complete RT , 6 VIEWS DATE OF EXAM ORDERED: 09/04/2018 HISTORY: Pain. COMPARISON: None. FINDINGS: Osseous structures about the ankle are normal. There is no fracture, dislocation or ankle joint effusion. Osseous structures about the foot demonstrate no fracture or dislocation. There is an Achilles spur s een arising from the calcaneus. IMPRESSION: NO ACUTE OSSEOUS LESION.
--- NOTE | 2018-09-04 08:58 | ED ---
General Adult HPI - General Chief complaint: Extremity Injury, Lower Stated complaint: RT foot injury Time Seen by Provider: 09/04/18 08:15 Source: patient, RN notes reviewed Mode of arrival: ambulatory Limitations: no limitations - History of Present Illness Initial comments: 32-year-old female with a past medical history of asthma, GERD, migraines, va ricose veins presents to the emergency department for chief right foot pain. Patient states that 2 days ago she missed the last step while walking outside stairs and landed on her right foot. States the lateral aspect of the right foot is painful. States her right ankle is also painful on the lateral aspect. Denies falling or hitting her head. Denies any other injuries. States she has a tingling sensation at the top of her foot. Denies any knee pain. Patient states she can no longer bear weight on the right foot due to the pain.Patient has no other complaints at this time including shortness of breath, chest pain, abdominal pain, nausea or vomiting, headache, or visual changes. - Related Data Home Medications Medication Instructions Recorded Confirmed Albuterol Inhaler [Ventolin Hfa 1 - 2 puff INHALATION RT-Q6H PRN 05/22/18 05/22/18 Inhaler] Albuterol Nebulized [Ventolin 2.5 mg INHALATION RT-Q4H PRN 05/22/18 05/22/18 Nebulized] Guaifen/Dextromethorphan/PE 30 ml PO Q12H PRN 05/22/18 05/22/18 [Mucinex Fast-Max Congest-Cough] Ibuprofen [Motrin] 800 mg PO Q6HR PRN 05/22/18 05/22/18 Previous Rx's Medication Instructions Recorded guaiFENesin-DM 100-10MG/5ML 10 ml PO Q6HR #120 ml 05/22/18 [Robitussin DM] Allergies Allergy/AdvReac Type Severity Reaction Status Date / Time bee venom protein (honey bee) Allergy Unknown Verified 09/04/18 08:13 cephalexin monohydrate Allergy Swelling Verified 09/04/18 08:13 [From Keflex] sulfamethoxazole Allergy Rash/Hives Verified 09/04/18 08:13 [From Bactrim] trimethoprim [From Bactrim] Allergy Rash/Hives Verified 09/04/18 08:13 propoxyphene napsylate AdvReac Nausea & Verified 09/04/18 08:13 [From Darvocet-N 100] Vomiting Review of Systems ROS Statement: Those systems with pertinent positive or pertinent negative responses have been documented in the HPI. ROS Other: All systems not noted in ROS Statement are negative. Past Medical History Past Medical History: Asthma, GERD/Reflux, Skin Disorder Additional Past Medical History / Comment(s): MIGRAINES, varicose veins, bronchitis, gets rashes on legs and back-cause unknown History of Any Multi-Drug Resistant Organisms: None Reported Past Surgical History: Ear Surgery, Hernia Repair Additional Past Surgical History / Comment(s): TUBES IN EARS. Past Anesthesia/Blood Transfusion Reactions: Motion Sickness Past Psychological History: Anxiety Smoking Status: Current every day smoker Past Alcohol Use History: None Reported Past Drug Use History: None Reported - Past Family History Mother Family Medical History: No Reported History General Exam Limitations: no limitations General appearance: alert, in no apparent distress Head exam: Present: atraumatic, normocephalic, normal inspection Eye exam: Present: normal appearance, PERRL, EOMI. Absent: scleral icterus, conjunctival injection ENT exam: Present: normal exam, mucous membranes moist Neck exam: Present: normal inspection, full ROM. Absent: tenderness, meningismus, lymphadenopathy Respiratory exam: Present: normal lung sounds bilaterally. Absent: respiratory distress, wheezes, rales, rhonchi, stridor Cardiovascular Exam: Present: regular rate, normal rhythm, normal heart sounds. Absent: systolic murmur, diastolic murmur, rubs, gallop, clicks Extremities exam: Present: full ROM (Full range of motion of the right foot occluding all digits and ankle.), normal capillary refill (Capillary refill less than 2 seconds 70. Pulse 2+ in the right lower extremity), joint swelling (Mild edema noted of the lateral aspect of the right foot as well as lateral malleolus.), other (Sensation intact in the right upper extremity). Absent: normal inspection (Patient has generalized tenderness noted to the lateral aspect of the right foot, no point tenderness noted.), tenderness, pedal edema, calf tenderness Neurological exam: Present: alert, oriented X3, CN II-XII intact Psychiatric exam: Present: normal affect, normal mood Course Vital Signs 09/04/18 08:10 Temperature 97.7 F Pulse Rate 89 Respiratory 18 Rate Blood Pressure 129/88 O2 Sat by Pulse 98 Oximetry Procedures - Orthopedic Splinting/Casting Injury #1 Side: right Lower Extremity Injury Location: short leg Lower Extremity Immobilizer: posterior splint Other Orthopedic Equipment: crutches Additional Comments: Neurovascular status intact after splint applied. Capillary refill less than 2 seconds. Medical Decision Making - Medical Decision Making 32-year-old female presents to the emergency department for right foot pain after missing a stair and landed on her right foot. This happened 2 days ago. However pain worsened and now patient is unable to bear weight on the foot. On exam mild edema noted over the lateral aspect of the foot, no point tenderness. There is generalized tenderness. X-ray of the right foot and ankle shows no acute osseous lesion. There is an Achilles spur noted. As patient is unable to bear weight she was put in a posterior short leg splint. Patient will follow-up with orthopedics. Will return here if she has any worsening symptoms. Disposition Clinical Impression: Right foot injury Disposition: HOME SELF-CARE Condition: Good Instructions (If sedation given, give patient instructions): Foot Sprain (ED) Additional Instructions: Please take Motrin and Tylenol for pain. Keep foot elevated and apply ice. Use crutches. Follow-up with primary care in 1-2 days. Return if you have any worsening symptoms. Is patient prescribed a controlled substance at d/c from ED?: No Referrals: Bakari Haq DO [Primary Care Provider] - 1-2 days Indra Fletcher MD [STAFF PHYSICIAN] - 1-2 days Time of Disposition: 09:14
== END 2018-09-04 10:05 | disposition home or self-care (01) ==
LOC: EC 08:08
DX: S99.921A Unspecified injury of right foot, initial encounter (principal); M77.51 Other enthesopathy of right foot and ankle; J45.909 Unspecified asthma, uncomplicated; F17.200 Nicotine dependence, unspecified, uncomplicated; Z88.1 Allergy status to other antibiotic agents; Z88.2 Allergy status to sulfonamides; Z88.5 Allergy status to narcotic agent; Z91.018 Allergy to other foods; W01.0XXA Fall on same level from slipping, tripping and stumbling without subsequent striking against object, initial encounter; Y93.01 Activity, walking, marching and hiking; Y92.89 Other specified places as the place of occurrence of the external cause
CPT/HCPCS: 29515; 99283

== ENCOUNTER → 2018-09-22 | Outpatient (CLI) | payer OTHER ==
--- NOTE | 2018-09-22 08:15 | US ---
EXAMINATION TYPE: US gallbladder DATE OF EXAM: 09/22/2018 COMPARISON: NONE CLINICAL HISTORY: R10.11 RUQ pain R10.12 LUQ pain R10 Abdominal Pain. RUQ pain EXAM MEASUREMENTS: Liver Length: 17.4 cm Gallbladder Wall: 0.3 cm CBD: 0.5 cm Right Kidney: 10.0 x 4.8 x 5.8 cm Pancreas: Obscured by bowel gas Liver: Increased attenuation Gallbladder: wnl Evidence for sonographic Fletcher's sign: No CBD: wnl Right Kidney: wnl IMPRESSION: 1. Hepatomegaly. 2. No acute right upper quadrant ultrasound changes. 3. Exam is limited due to bowel gas
== END | disposition home or self-care (01) ==
LOC: RADUSWWP 07:28
PROVIDERS: ATTEND Family Medicine
DX: R10.12 Left upper quadrant pain (principal); R10.11 Right upper quadrant pain
CPT/HCPCS: 76705

== ENCOUNTER → 2019-07-13 | Outpatient (CLI) | payer OTHER ==
--- NOTE | 2019-07-13 11:18 | FL ---
ESOPHOGRAM. HISTORY: Dysphagia Esophagram was performed per the air contrast technique. The patient swallowed barium and effervesce nt crystals without difficulty or delay. Esophageal peristalsis and motility appear to be within normal limits. There is no evidence for filling defect, mass or diverticulum. No hiatal hernia seen. Subsequently single contrast cervical esophagram was performed which fails demonstrate evidence for a spiration penetration or mass. IMPRESSION: Unremarkable study.
== END | disposition home or self-care (01) ==
LOC: RADUSWWP 10:03
PROVIDERS: ATTEND Surgery
DX: R13.10 Dysphagia, unspecified (principal)
CPT/HCPCS: 74220

== ENCOUNTER → 2019-07-14 | Outpatient (CLI) | payer SELFPAY ==
--- NOTE | 2019-07-14 09:23 | NM ---
EXAMINATION TYPE: NM hepatobiliary w CCK DATE OF EXAM: 07/14/2019 COMPARISON: NONE HISTORY: Pain TECHNIQUE: After the intravenous administration of 5.3 mCi Tc 99m Mebrofenin hepatobiliary scintigrap hy is performed. Immediate images post injection. FINDINGS: There is satisfactory initial accumulation of tracer by the liver. The gallbladder is visualized wit hin 18 minutes. The small bowel activity is noted within 10 minutes. At one hour CCK was administer ed, patient was injected with 2.6 mcg of Kinevac, and gallbladder ejection fraction is calculated at 92%. IMPRESSION: Correlate for hypercontractile state.
== END | disposition home or self-care (01) ==
LOC: RADNMMAIN 06:54
PROVIDERS: ATTEND Surgery
DX: R10.13 Epigastric pain (principal)
CPT/HCPCS: 78227; A9537; J2805

== ENCOUNTER → 2019-12-27 | Outpatient (CLI) | payer BC, OTHER ==
--- NOTE | 2019-12-27 15:20 | MR ---
EXAMINATION TYPE: MR knee RT wo con DATE OF EXAM: 12/27/2019 COMPARISON: 06/24/2019 radiographs HISTORY: 34-year-old female Right knee pain TECHNIQUE: Multiplanar, multisequence imaging of the right knee is performed without IV contrast. FINDINGS: The ACL, PCL, MCL, and LCL complex are intact. The medial and lateral menisci are intact. Medial and lateral compartment articular cartilage volumes are maintained. There is a hypoplastic superior aspect of the medial trochlear facet and slight lateral patellar marquis slation. On the moderate superficial cartilage fissuring along the lateral patellar facet and mild samaniego perficial irregular cartilage loss along the lateral trochlear facet. Extensor mechanism is intact. Physiologic knee joint fluid. No Rodriguez's cyst. Incidental varicosities within the anterior subcutaneo us soft tissues. Normal popliteal artery anatomy in muscle bulk. No suspicious bone marrow replacement. Patchy red mar row is present and can be seen in the setting of anemia, obesity, smoking, chronic disease. IMPRESSION: 1. Early degenerative change of the patellofemoral compartment with mild to moderate fissuring of art icular cartilage along the lateral patellar facet. 2. 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 Slight lateral patellar translation. Correlate for any symptoms of patellar tracking disorder. 3. No cruciate/collateral ligament or meniscal tear.
== END | disposition home or self-care (01) ==
LOC: RADMRIMAIN 11:09
PROVIDERS: ATTEND Orthopaedic Surgery
DX: M17.11 Unilateral primary osteoarthritis, right knee (principal); Q74.1 Congenital malformation of knee

== ENCOUNTER → 2020-01-10 | Outpatient (CLI) | payer BC, OTHER ==
[2020-01-10 16:52] LABS: Basophils # (A) 0.1 k/uL (0-0.2); Basophils % (A) 1 %; Eosinophils # (A) 0.1 k/uL (0-0.7); Eosinophils % (A) 1 %; HCT 46.3 % (34.0-46.0); HGB 14.4 gm/dL (11.4-16.0); Lymphocytes # (A) 2.5 k/uL (1.0-4.8); Lymphocytes % (A) 27 %; MCH 30.1 pg (25.0-35.0); MCHC 31.1 g/dL (31.0-37.0); MCV 96.9 fL (80.0-100.0); Mean Platelet Volume 9.5; Monocytes # (A) 0.4 k/uL (0-1.0); Monocytes % (A) 4 %; Neutrophils # (A) 6.1 k/uL (1.3-7.7); Neutrophils % (A) 66 %; Platelet Count 263 k/uL (150-450); RBC 4.78 m/uL (3.80-5.40); RDW 12.9 % (11.5-15.5); WBC 9.3 k/uL (3.8-10.6)
[2020-01-10 17:04] LABS: Potassium 4.5 mmol/L (3.5-5.1)
== END | disposition home or self-care (01) ==
LOC: LABPAT 15:53
PROVIDERS: ATTEND Orthopaedic Surgery
DX: Z01.818 Encounter for other preprocedural examination (principal); M23.91 Unspecified internal derangement of right knee
CPT/HCPCS: 36415; 80051; 81025; 85025

== ENCOUNTER 2020-01-19 10:34 | Day surgery (SDC) | payer BC, OTHER ==
[2020-01-17 15:29] VITALS: BMI 41.9
--- NOTE | 2020-01-18 15:38 | HP ---
HISTORY AND PHYSICAL DATE OF SURGERY: 01/19/2020 Teresa Solitario is a 34-year-old patient seen with progressive right knee pain. We discussed options for treatment. She elected to proceed with arthroscopy. Consent was obtained. PAST MEDICAL HISTORY: Asthma. PAST SURGICAL HISTORY: Herniorrhaphy. MEDICATIONS: Albuterol inhaler, ibuprofen. ALLERGIES: Are DARVOCET, BACTRIM, KEFLEX. SOCIAL HISTORY: Smokes 1/2 pack cigarettes daily. PHYSICAL EVALUATION OF THE RIGHT KNEE: Range of motion is +3 to 130. Mild effusion. Tenderness medial lateral joint lines. Crepitus medial patellofemoral joint. Pain with patellofemoral compression. Ligaments stable. Hip rotation without pain. Distal neurovascular exam intact. RIGHT KNEE RADIOGRAPHS: Revealed mild osteoarthritic changes. Right knee MRI revealed patellar chondromalacia. IMPRESSION: 1. Internal derangement, right knee with osteochondral tear. 2. Right knee patellar chondromalacia. PLAN: Right knee arthroscopy with chondroplasty and debridement. MMODL / IJN: [id number] /
[~2020-01-19 10:34] MED LIST changes: +DEXAMETHASONE SOD PHOSPHATE 4 MG/ML 1 ML VIAL IV ONE; -LIDOCAINE 1% 20 ML VIAL (10MG/ML) FOR IV START INTRADERMA PRN; +ONDANSETRON 4 MG/2 ML VIAL IVP ONE; +Pre Op ABX Message 1 EACH MISC MISCELLANE ONE
[2020-01-19 11:07] VITALS: TEMP 96.9
[2020-01-19] MEDS ORDERED: LIDOCAINE 1% (10MG/ML) FOR IV START INTRADERMA ONE (11:21)
[2020-01-19] MEDS ORDERED: SCOPOLAMINE 1.5MG/72HR PATCH TRANSDERM ONE (11:23)
[2020-01-19] MEDS ORDERED: MIDAZOLAM 2 MG/2 ML VIAL ONE (12:01)
[2020-01-19] MEDS ORDERED: SUCCINYLCHOLINE CHLORIDE VIAL 200 MG/10 ML VIAL IV ONE (12:01)
[2020-01-19] MEDS ORDERED: fentaNYL (PF) 50 MCG/ML 2 ML AMP ONE (12:01)
[2020-01-19] MEDS ORDERED: PROPOFOL 10 MG/ML 20 ML VIAL IV ONE (12:01)
[2020-01-19] MEDS ORDERED: LIDOCAINE 1% INJ 10MG/ML (20 ML MDV) ONE (12:01)
[2020-01-19] MEDS ORDERED: SODIUM CHLORIDE 0.9% 100 ML with CLINDAMYCIN 600 MG IV ONE ×2 (12:10)
[2020-01-19] MEDS ORDERED: BUPIVACAINE (PF) 0.25% 30 ML VIAL INTRAARTIC ONE (12:32)
--- NOTE | 2020-01-19 12:45 | P.OP ---
Date of Procedure: 01/19/20 Preoperative Diagnosis: Internal derangement right knee Postoperative Diagnosis: 1. Tear lateral meniscus right knee 2. Grade 3 chondromalacia patellofemoral joint right knee 3. Reactive synovitis medial, lateral and suprapatellar compartments right knee Procedure(s) Performed: 1. Arthroscopic partial lateral meniscectomy right knee 2. Arthroscopic chondroplasty patellofemoral joint right knee 3. Arthroscopic partial synovectomy medial, lateral and suprapatellar compartments right knee Anesthesia: MARYAMA, local Surgeon: Randy Irwin Estimated Blood Loss (ml): 6 Pathology: none sent Condition: stable Disposition: PACU Indications for Procedure: 34-year-old patient seen with progressive right knee pain. After treatment options were discussed, she elected to proceed with arthroscopy. Operative Findings: See description of procedure Description of Procedure: Patient was taken to the operative suite. Patient underwent a general anesthetic by the department of anesthesia. Patient was given preoperative ant ibiotics. The right lower extremity was placed in a well-padded arthroscopic leg manjarrez. The right leg was prepped and draped in the normal sterile orthopedic fashion. A lateral parapatellar and suprapatellar incision was made. Trochars were inserted. Arthroscopy was initiated. Suprapatellar pouch revealed diffuse thick reactive synovitis. The patellofemoral joint appeared to articulate congruently. There was grade 2 chondromalacia patella and grade 3 chondromalacia of the femoral sulcus with osteochondral tears noted on both sides. The scope was guided into the medial gutter. No loose bodies or plica were identified. The scope was then guided into the medial compartment. A medial parapatellar incision was made. Trocar inserted followed by probe. The meniscus was probed and found to be stable. There was no significant chondromalacia medial compartment. There was thick reactive synovitis anteriorly. I introduced a motorized shaver and performed a partial synovectomy. Shaver was removed. There was good decompression of the synovitis. Scope and probe were then guided into the intercondylar notch. Cruciates were identified, probed and found to be stable. The scope and probe were then guided into lateral compartment. There was a small radial tear mid body lateral meniscus. There was no significant chondromalacia. There was thick reactive synovitis anteriorly. I performed a partial lateral meniscectomy. I performed a partial synovectomy decompressing the reactive synovitis. The residual meniscus was stable. There was good decompression of synovitis. The scope was in guided back into the suprapatellar compartment. I introduced a motorized shaver into the super compartment. I debrided some piecemeal fragments of meniscus I encountered. I performed a partial synovectomy decompressing the reactive synovitis. I performed a chondroplasty of the patella and the femoral sulcus getting down to stable osteochondral tissue. The shaver was removed. The patellofemoral joint was probed and the residual osteochondral surface was found to be stable. There was good decompression of synovitis. Instruments were now removed from the joint. The joint was infiltrated with .25% Marcaine. Steri-Strips were applied to the portal sites. Sterile dressings were applied. The patient was placed into a JULIO C hose. No tourniquet was utilized. The patient was awakened, transferred to a bed and taken to recovery stable satisfactory condition.
[2020-01-19] MEDS ORDERED: HYDROmorphone 1 MG/ML 1 ML SYRINGE IVP ONE (12:54)
[2020-01-19] MEDS: HYDROmorphone 0.5 MG/0.5 ML SYRINGE IVP PRN ×3 (13:06→13:21)
[2020-01-19 13:07] VITALS: RESP 16
[2020-01-19 13:47] VITALS: BP 115/66; PULSE 68
== END 2020-01-19 14:39 | disposition home or self-care (01) ==
LOC: OR 10:34
PROVIDERS: ATTEND Orthopaedic Surgery
DX: M23.200 Derangement of unspecified lateral meniscus due to old tear or injury, right knee (principal); M22.41 Chondromalacia patellae, right knee; M65.9 Synovitis and tenosynovitis, unspecified; J45.909 Unspecified asthma, uncomplicated; F17.210 Nicotine dependence, cigarettes, uncomplicated; F41.9 Anxiety disorder, unspecified; K21.9 Gastro-esophageal reflux disease without esophagitis; E66.01 Morbid (severe) obesity due to excess calories; Z68.41 Body mass index [BMI] 40.0-44.9, adult; Z79.1 Long term (current) use of non-steroidal anti-inflammatories (NSAID); Z79.899 Other long term (current) drug therapy; Z88.1 Allergy status to other antibiotic agents; Z88.5 Allergy status to narcotic agent; Z88.2 Allergy status to sulfonamides; Z91.030 Bee allergy status
CPT/HCPCS: 81025; 29881; J2250; J0330; J1100; J2405; J2001; J3010; J1170 ×2; J2704

== ENCOUNTER → 2021-02-01 | Outpatient (CLI) | payer BC, OTHER | END | disposition home or self-care (01) | LOC: LABWHC1 06:56 | PROVIDERS: ATTEND Emergency Medicine | DX: Z20.822 Contact with and (suspected) exposure to COVID-19 (principal) | CPT/HCPCS: 87635 ==

== ENCOUNTER → 2021-02-02 | Outpatient (CLI) | payer OTHER | END | disposition home or self-care (01) | LOC: LABWHC1 07:02 | PROVIDERS: ATTEND Emergency Medicine | DX: Z20.822 Contact with and (suspected) exposure to COVID-19 (principal) | CPT/HCPCS: 87635 ==

== ENCOUNTER 2021-03-01 21:30 | Emergency (ER) | payer OTHER ==
[2021-03-01 21:37] VITALS: RESP 18
--- NOTE | 2021-03-01 22:12 | ED ---
Recheck HPI - General Chief Complaint: Recheck/Abnormal Lab/Rx Stated Complaint: COVID+, Fatigue, headache Time Seen by Provider: 03/01/21 21:39 Source: patient, RN notes reviewed Mode of arrival: ambulatory Limitations: no limitations - History of Present Illness Initial Comments: Patient is a 35-year-old female that presents to the emergency department Covid- positive for 2 days. She notes she tested positive here at [facility]. 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 Patient notes that she would like monoclonal antibodies. She also notes that her son has been having some upper respiratory tract symptoms with congestion. Patient was otherwise well-appearing in no apparent distress. She denied any chest pain shortness of breath headache nausea vomitin g diarrhea constipation fever fatigue chills. - Related Data Home Medications Medication Instructions Recorded Confirmed Albuterol Inhaler (Mhu) [Ventolin 1 - 2 puff INHALATION RT-Q6H PRN 05/22/18 01/17/20 Hfa Inhaler] Albuterol Nebulized [Ventolin 2.5 mg INHALATION RT-QID PRN 05/22/18 01/17/20 Nebulized] Previous Rx's Medication Instructions Recorded Hydrocodone/Acetaminophen [[place] 1 each PO Q6HR PRN #18 tab 01/19/20 5-325] Allergies Allergy/AdvReac Type Severity Reaction Status Date / Time bee venom protein (honey bee) Allergy Anaphylaxis Verified 03/01/21 21:37 cephalexin monohydrate Allergy Swelling Verified 03/01/21 21:37 [From Keflex] propoxyphene napsylate Allergy Rash/Hives Verified 03/01/21 21:37 [From Darvocet-N 100] sulfamethoxazole Allergy Rash/Hives Verified 03/01/21 21:37 [From Bactrim] trimethoprim [From Bactrim] Allergy Rash/Hives Verified 03/01/21 21:37 Review of Systems ROS Statement: Those systems with pertinent positive or pertinent negative responses have been documented in the HPI. ROS Other: All systems not noted in ROS Statement are negative. Past Medical History Past Medical History: Asthma, GERD/Reflux, Skin Disorder Additional Past Medical History / Comment(s): MIGRAINES, varicose veins, bronchitis, gets rashes on legs and back-cause unknown History of Any Multi-Drug Resistant Organisms: None Reported Past Surgical History: Ear Surgery, Hernia Repair Additional Past Surgical History / Comment(s): TUBES IN EARS,hiatal hernia repair with mesh Past Anesthesia/Blood Transfusion Reactions: Motion Sickness Past Psychological History: Anxiety Smoking Status: Current every day smoker - Past Family History Mother Family Medical History: No Reported History General Exam Limitations: no limitations General appearance: alert, in no apparent distress, obese Head exam: Present: atraumatic, normocephalic, normal inspection Eye exam: Present: normal appearance, PERRL, EOMI. Absent: scleral icterus, conjunctival injection, periorbital swelling ENT exam: Present: normal exam, mucous membranes moist Neck exam: Present: normal inspection. Absent: tenderness, meningismus, lymphadenopathy Respiratory exam: Present: normal lung sounds bilaterally. Absent: respiratory distress, wheezes, rales, rhonchi, stridor Cardiovascular Exam: Present: regular rate, normal rhythm, normal heart sounds. Absent: systolic murmur, diastolic murmur, rubs, gallop, clicks Extremities exam: Present: normal inspection, full ROM, normal capillary refill. Absent: tenderness, pedal edema, joint swelling, calf tenderness Neurological exam: Present: alert, oriented X3 Psychiatric exam: Present: normal affect, normal mood Skin exam: Present: warm, dry, intact, normal color. Absent: rash Course Vital Signs 03/01/21 21:33 Temperature 98.6 F Pulse Rate 88 Respiratory 18 Rate Blood Pressure 107/76 O2 Sat by Pulse 98 Oximetry Medical Decision Making - Medical Decision Making 35-year-old female Covid-positive for 2 days. Patient does meet criteria for monoclonal antibodies most undergo infusion. Patient is agreeable Discharge home after infusion. Case discussed with Dr. Katz Disposition Clinical Impression: COVID Disposition: HOME SELF-CARE Condition: Stable Instructions (If sedation given, give patient instructions): Coronavirus Disease 2019 (COVID-19) Additional Instructions: Please return to the Emergency Department if symptoms worsen or any other concerns. Is patient prescribed a controlled substance at d/c from ED?: No Referrals: Bakari Haq DO [Primary Care Provider] - 1-2 days Time of Disposition: 22:14
[2021-03-01] MEDS: BAMLANIVIMAB (EUA) 700 MG, ETESEVIMAB (EUA) 1,400 MG in SODIUM CHLORIDE 0.9% 100 ML IVPB ONE (22:55)
[2021-03-01] MEDS: SODIUM CHLORIDE 0.9% 50 ML IVPB ONE (23:28)
[2021-03-02 00:43] VITALS: BP 115/84; PULSE 79; TEMP 98.2
== END 2021-03-02 00:42 | disposition home or self-care (01) ==
LOC: EC 21:30
DX: U07.1 COVID-19 (principal); J45.909 Unspecified asthma, uncomplicated; F17.200 Nicotine dependence, unspecified, uncomplicated; E66.9 Obesity, unspecified; Z68.41 Body mass index [BMI] 40.0-44.9, adult; Z79.51 Long term (current) use of inhaled steroids; Z88.1 Allergy status to other antibiotic agents; Z88.2 Allergy status to sulfonamides
CPT/HCPCS: 99283; J3490